=== PATIENT | female | born 1930 | race Caucasian/White ===

== ENCOUNTER 2017-11-28 20:47 | Emergency (ER) | payer OTHER ==
--- NOTE | 2017-11-28 20:47 | EDPHY ---
H & P Time Seen by Provider: 11/28/17 20:47 HPI/ROS: HPI: This 87-year-old female who presents with Chief Complaint: epistaxis Location: Left nostril Quality: Bleeding Duration: 1 hr prior to arrival Signs and Symptoms: no fever, no nausea, no vomiting, no photophobia, no noise sensitivity, no neck stiffness, no ear pain, no tinnitus, no nasal congestion, no sinus pressure, no weakness, no radiation, no aura Timing: Acute on chronic Severity: Moderate Context: Patient lives at home with her daughter has a history of atrial fibrillation only on aspirin presents via EMS with complaints of 1 hr nosebleed from her left nostril. Patient reports it started to bleed as she was climbing the stairs. She does have the heat on and noted that her house was clothes drier assembler than normal. Daughter at bedside reports that patient has had frequent nosebleeds for the last 5 years. She has had frequent evaluations at [facility] including nasal surgery and ENT consultations. Patient has nasal saline as well as Vaseline at home that she uses frequently. Denies dizziness/shortness of breath /chest pain. Patient attempted to apply direct pressure but the nose bleed would not stop. [facility] patient. Modifying Factors: See above Comment: ROS: see HPI Constitutional: No fever, no chills, no weight loss Eyes: No blurred vision Respiratory: No shortness of breath, no cough Cardiovascular: No chest pain, no palpitations Gastrointestinal: No nausea, no vomiting, no diarrhea, no hematemesis, no blood in stool Genitourinary: No dysuria, no blood in urine Extremities: No myalgias, no edema Neurologic: No weakness, no numbness Skin: No rashes, no petechiae Hematologic: No bruising, no bleeding MEDICAL/SURGICAL/SOCIAL HISTORY: Medical history: Atrial fibrillation, hypertension, hyperlipidemia, hypothyroidism Surgical history: Pacemaker Social history: Family history noncontributory. CONSTITUTIONAL: Pleasant elderly white female, daughter at bedside, awake and alert, no obvious distress HEENT: Atraumatic and normocephalic, PERRL, EOMI. Left nare anterior bleed noted; right nare clear. Dried blood and clots noted in posterior pharynx. Tympanic membranes clear. Oropharynx clear, no exudate and moist pink mucosa. Airway patent. No lymphadenopathy. No meningismus. Cardiovascular: Normal S1/S2, regular rate, regular rhythm, without murmur rub or gallop. PULMONARY/CHEST: Symmetrical and nontender. Clear to auscultation bilaterally. Good air movement. No accessory muscle usage. ABDOMEN: Soft, nondistended, nontender, no rebound, no guarding, no peritoneal signs, no masses or organomegaly. No CVAT. EXTREMITIES: 2/2 pulses, strength 5/5, no deformities, no clubbing, no cyanosis or edema. NEUROLOGICAL: no focal neuro deficits. GCS 15. SKIN: Warm and dry, no erythema. no rash. Good capillary refill. Source: Patient, Family (Daughter), EMS Exam Limitations: No limitations Constitutional: Initial Vital Signs Temperature (C) 36.7 C 11/28/17 20:53 Heart Rate 60 11/28/17 20:53 Respiratory Rate 20 11/28/17 20:53 Blood Pressure 148/70 H 11/28/17 20:53 O2 Sat (%) 92 11/28/17 20:53 O2 Delivery Mode Room Air Allergies/Adverse Reactions: morphine Allergy (Verified 11/28/17 20:52) Sulfa (Sulfonamide Antibiotics) Allergy (Verified 11/28/17 20:52) Home Medications: Medication Instructions Recorded Amiodarone HCL 200 mg PO DAILY 05/15/10 CRESTOR 40 mg PO DAILY 05/15/10 FLUoxetine HCL 10 mg PO DAILY 05/15/10 GABAPENTIN 300 mg PO HS 05/15/10 LEVOTHYROXINE SODIUM 75 mcg PO DAILY 05/15/10 LOSARTAN POTASSIUM 25 mg PO HS 05/15/10 Letrozole 2.5 mg PO DAILY 05/15/10 METOPROLOL TARTRATE 12.5 mg PO BID 05/15/10 OMEPRAZOLE 20 mg PO BID 05/15/10 Zocor 05/15/10 Medical Decision Making Procedures: Procedure: Epistaxis control. After verbal consent was obtained, the patient was not anesthetized. The anterior epistaxis was identified. The patient was treated with T x-ray and rhino rocket with balloon filled to 6 mL. Following the procedure the patient was re-examined and the bleeding was well controlled. The patient tolerated the procedure well. The procedure was performed by myself. ED Course/Re-evaluation: Vital signs reviewed upon arrival. Blood pressure 148/70. No signs of airway compromise/respiratory distress. Left nostril bleed noted; TXA soaked rhino rocket placed with 6 mL in balloon. monitored patient x 1 hour, ambulated patient to bathroom and no bleeding noted. advised to follow up with ENT for removal of packing. This patient was seen under the supervision of my secondary supervising physician. I evaluated care for this patient independently. Discussed this patient with Dr. Mcmanus who did not see the patient. Differential Diagnosis: Differential diagnosis includes but is not limited to coagulopathy, nasal malignancy, nasal dryness, anterior epistaxis, posterior epistaxis. Departure - Departure Disposition: Home, Routine, Self-Care Clinical Impression: Left-sided epistaxis Condition: Good Instructions: Nosebleed (ED) Additional Instructions: Please do not pick your nose or blow your nose for 72 hr. Apply nasal saline wash as needed or Vaseline to your nostrils to prevent nasal dryness. Follow up with ENT on Saturday or Saturday to have your rhinorocket removed. Referrals: PCP Not In,Dictionary [Medical Doctor] - As per Instructions Micaela Serrato MD [Medical Doctor] - As per Instructions
[2017-11-28] MEDS ORDERED: TRANEXAMIC ACID 1,000 MG/10 ML VIAL ONE (20:50)
[2017-11-28 20:56] VITALS: BP 148/70
== END 2017-11-28 21:35 | disposition home or self-care (01) ==
LOC: EDUNIT#
PROC: 2Y41X5Z Packing of Nasal Region using Packing Material (ICD-10-PCS; principal; 2017-11-28)
DX: R04.0 Epistaxis (principal); I10 Essential (primary) hypertension; Z79.82 Long term (current) use of aspirin